=== PATIENT | female | born 2000 | race American Indian/Alaskan Native ===

== ENCOUNTER 2018-09-17 10:34 | Emergency (ER) | payer SELFPAY ==
[2018-09-17 10:47] VITALS: BP 127/72
[2018-09-17 12:56] LABS: Bilirubin,Urine NEG (Negative); Blood,Urine SM (Negative); Color,Urine Yellow (Yellow); Mucus,Urine FEW /HPF; Protein,Urine <15 mg/dL mg/dL (Negative)
[2018-09-17] MEDS ORDERED: ROCEPHIN IM STA (13:10)
[2018-09-17] MEDS ORDERED: XYLOCAINE 1% MPF 5 mL INFILTRATI ONE (13:10)
[2018-09-17] MEDS ORDERED: ZITHROMAX PO STA (13:10)
--- NOTE | 2018-09-17 13:51 | Emergency Department Report ---
ED Female HPI - General Chief complaint: Urogenital-Female Stated complaint: POSS STD Time Seen by Provider: 09/17/18 11:11 Source: patient Mode of arrival: Ambulatory Limitations: No Limitations - History of Present Illness Initial comments: 18-year-old Cypriot female presents to the emergency department complaining of a one-week history of what is discharge in his words come in contact with STD. States that her partner was advised that he had chlamydia and was treated accordingly yesterday. She reports having some cramping to the pelvic region off and on since vaginal irritation. No fever, chills, sweats, chest pain, palpitations. No diarrhea. No vaginal rashes. No herpetic lesions to her knowledge. MD Complaint: vaginal discharge -: Gradual Location: suprapubic Radiation: non-radiating Consistency: constant Improves with: none Worsens with: none Are you Now?: No Associated Symptoms: vaginal discharge. denies: nausea/vomiting, fever/chills, headaches, loss of appetite, dysuria, hematuria, rash, shortness of breath, syncope, weakness - Related Data Sexually active: No Previous Rx's Medication Instructions Recorded Last Taken Type metroNIDAZOLE [Flagyl] 500 mg PO Q12HR #20 tab 09/17/18 Unknown Rx Allergies Allergy/AdvReac Type Severity Reaction Status Date / Time No Known Allergies Allergy Verified 09/17/18 10:44 ED Review of Systems ROS: Stated complaint: POSS STD Other details as noted in HPI Comment: All other systems reviewed and negative ED Past Medical Hx - Past Medical History Previous Medical History?: No - Surgical History Past Surgical History?: No - Social History Smoking Status: Never Smoker Substance Use Type: None - Medications Home Medications: Home Medications Medication Instructions Recorded Confirmed Last Taken Type metroNIDAZOLE [Flagyl] 500 mg PO Q12HR #20 tab 09/17/18 Unknown Rx ED Physical Exam - General Limitations: No Limitations General appearance: alert, in no apparent distress - Head Head exam: Present: atraumatic, normocephalic - Eye Eye exam: Present: normal appearance, PERRL, EOMI Pupils: Present: normal accommodation - ENT ENT exam: Present: normal exam, mucous membranes moist - Neck Neck exam: Present: normal inspection - Respiratory Respiratory exam: Present: normal lung sounds bilaterally. Absent: respiratory distress, wheezes, rales, chest wall tenderness, accessory muscle use, decreased breath sounds - Cardiovascular Cardiovascular Exam: Present: regular rate, normal rhythm. Absent: systolic murmur, diastolic murmur, rubs, gallop - GI/Abdominal GI/Abdominal exam: Present: soft, normal bowel sounds - External exam: Present: normal external exam Speculum exam: Present: vaginal discharge Bi-manual exam: Present: other (was chaperoned by nurse Rashaad at the time of the examination). Absent: cervical motion tendernes, adnexal tenderness, augustine rine enlargement, uterine tenderness - Extremities Exam Extremities exam: Present: normal inspection - Back Exam Back exam: Present: normal inspection - Neurological Exam Neurological exam: Present: alert, oriented X3 - Psychiatric Psychiatric exam: Present: normal affect, normal mood - Skin Skin exam: Present: warm, dry, intact, normal color. Absent: rash ED Course Vital Signs 09/17/18 10:45 Temperature 98.4 F Pulse Rate 92 H Respiratory 16 Rate Blood Pressure 127/72 [Left] O2 Sat by Pulse 99 Oximetry Critical care attestation.: If time is entered above; I have spent that time in minutes in the direct care of this critically ill patient, excluding procedure time. ED Disposition Clinical Impression: Bacterial vaginal infection, Possible exposure to STD Disposition: DC-01 TO HOME OR SELFCARE Is pt being admited?: No Does the pt Need Aspirin: No Condition: Stable Instructions: Bacterial Vaginosis (ED), Sexually Transmitted Diseases (ED), Safe Sex (ED) Prescriptions: metroNIDAZOLE [Flagyl] 500 mg PO Q12HR #20 tab Referrals: CASI DELONGSHIPMAN MD FRANK [Primary Care Provider] - 3-5 Days Forms: STI Treatment and Prevention
== END 2018-09-17 14:17 | disposition home or self-care (01) ==
LOC: ED 10:34
DX: N76.0 Acute vaginitis (principal); Z20.2 Contact with and (suspected) exposure to infections with a predominantly sexual mode of transmission
CPT/HCPCS: 81001; 87210; 87591; 96372; 99284; J0696

== ENCOUNTER 2021-06-17 16:09 | Outpatient (CLI) | payer MEDICAID ==
[2021-06-17 18:09] LABS: Hematocrit 25.8 % (30.3-42.9); Mean Corpuscular HGB Conc 31 % (30-34); Platelet Count 326 K/mm3 (140-440); Red Blood Count 3.99 M/mm3 (3.65-5.03); Red Cell Distribution Width 19.3 % (13.2-15.2)
[2021-06-17 18:11] LABS: Mean Corpuscular Volume 65 fl (79-97)
[2021-06-17 19:11] VITALS: BP 118/71
== END 2021-06-17 19:10 | disposition home or self-care (01) ==
LOC: TRG 16:09 → APU 16:11 → TRG 19:10
PROVIDERS: ATTEND Obstetrics & Gynecology
DX: Z34.93 Encounter for supervision of normal pregnancy, unspecified, third trimester (principal); Z3A.39 39 weeks gestation of pregnancy
CPT/HCPCS: 36415; 59025; 85027; 86850; 86900; 86901

== ENCOUNTER 2021-06-26 11:06 | Inpatient (IN) | payer MEDICAID ==
[2021-06-26] MEDS ORDERED: NalbUPHINE 10 MG/1 ML INJ IV PRN (12:41)
[2021-06-26] MEDS ORDERED: ACETAMINOPHEN 325 MG TAB PO PRN (12:41)
[2021-06-26] MEDS ORDERED: METHYLERGONOVINE MALEATE 0.2 MG/ML VIAL IM PRN (12:41)
[2021-06-26] MEDS ORDERED: LOPERAMIDE 2 MG CAP PO PRN (12:41)
[2021-06-26] MEDS ORDERED: OXYTOCIN 10 UNIT/1 ML INJ IM PRN (12:41)
[2021-06-26] MEDS ORDERED: ONDANSETRON 4 MG/2 ML INJ IV PRN ×2 (12:41→23:56)
[2021-06-26] MEDS ORDERED: LIDOCAINE (2%) 20 MG/1 ML VIAL 20 ML MDV INFILTRATI ONE (12:41)
[2021-06-26] MEDS ORDERED: fentaNYL 100 MCG/2 ML INJ IV PRN (12:41)
[2021-06-26] MEDS ORDERED: ePHEDrine SULFATE 50 MG/1 ML INJ IV PRN (12:41)
[2021-06-26] MEDS ORDERED: miSOPROStol 200 MCG TAB PR PRN (12:41)
[2021-06-26] MEDS ORDERED: MINERAL OIL 30 ML ORAL LIQD PO PRN (12:41)
[2021-06-26] MEDS ORDERED: BUTORPHANOL 2 MG/1 ML INJ IV PRN ×2 (12:41)
[2021-06-26] MEDS ORDERED: TERBUTALINE 1 MG/1 ML INJ SUB-Q PRN (12:41)
[2021-06-26] MEDS ORDERED: CARBOPROST TROMETHAMINE 250 MCG/1 ML INJ IM PRN (12:41)
[2021-06-26] MEDS ORDERED: AMPICILLIN/NS 2 GM/100 ML 2 GM/100 ML BAG IV ONE (13:00)
[2021-06-26] MEDS ORDERED: OXYTOCIN DRIP 30 UNITS/500 ML BAG IV SCH ×3 (13:00→23:56)
[2021-06-26] MEDS ORDERED: LACTATED RINGERS 1,000 ML IV SCH (13:00)
[2021-06-26 13:26] LABS: Hematocrit 30.9 % (30.3-42.9); Hemoglobin 9.5 gm/dl (10.1-14.3); Mean Corpuscular HGB Conc 31 % (30-34); Platelet Count 275 K/mm3 (140-440); Red Blood Count 4.54 M/mm3 (3.65-5.03)
[2021-06-26 13:33] LABS: Mean Corpuscular Volume 68 fl (79-97); Red Cell Distribution Width 20.7 % (13.2-15.2)
--- NOTE | 2021-06-26 13:43 | History and Physical Report ---
History of Present Illness Date of examination: 06/26/21 Date of admission: 06/26/21 11:07 Chief complaint: I'm having contractions. History of present illness: 21yo G1 @ 40.3 weeks with an uncomplicated presents to triage with complaints of regular, painful contractions that started around 0800a today. Affirms movement and denies vaginal bleeding, LOF, chest pain, SOB, headaches, vision changes and NVD. Had an orange this AM, otherwise NPO since last night. Does not desire pharmacologic pain relief at this time. EDC Calculations Gestational Age: 40.3 weeks Past History: : 1 Term Births: 0 Premature Births: 0 Living Children: 0 Para: 0 Mult. Births: 0 Prev : 0 Prev. attempt? 0 Aborta: 0 Elect. Ab: 0 Spont. Ab: 0 Ectopics: 0 Past Medical History: Reviewed and updated today: Thyroid dx?? 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 of genital herpes: no Partner hx. of genital herpes: no Rash, Viral, or Febrile illness since last LMP? no Varicella/Chicken Pox Status: Immunized Genetic History: Congenital Heart Defect: Mom: no Dad: no Bala Disease: Mom: no Dad: no Thalassemia Mom: no Dad: no Neural Tube Defect Mom: no Dad: no Down's Syndrome Mom: no Dad: no Dimitrios-Sachs Mom: no Dad: no Sickle Cell Disease/Trait Mom: no Dad: no Hemophilia Mom: no Dad: no Muscular Dystrophy Mom: no Dad: no Cystic Fibrosis Mom: no Dad: no [place] Chorea Mom: no Dad: no Mental Retardation Mom: no Dad: no Fragile X Mom: no Dad: no Other Genetic/Chromosomal Disorder Mom: no Dad: no Child w/other defect Mom: no Dad: no Environmental Exposures: Xray Exposure: no Medication, drug, or alcohol use since LMP: no Chemical/Other Exposure: no Exposure to Cat Liter: no Hx of Parvovirus (Fifth Disease): no Occupational Exposure to Children: none Past History Past Medical History: thyroid disease (Possible?) Past Surgical History: no surgical history Family/Genetic History: cancer (Breast) Social history: no significant social history - Obstetrical History Expected Date of Delivery: 06/23/21 Actual Gestation: 40 Week(s) 3 Day(s) : 1 Para: 0 Hx # Term Pregnancies: 0 Number of Pregnancies: 0 Spontaneous Abortions: 0 Induced : 0 Number of Living Children: 0 Medications and Allergies Allergies Allergy/AdvReac Type Severity Reaction Status Date / Time No Known Allergies Allergy Verified 09/17/18 10:44 Home Medications Medication Instructions Recorded Confirmed Last Taken Type metroNIDAZOLE [Flagyl] 500 mg PO Q12HR #20 tab 09/17/18 06/17/21 Unknown Rx Ferrous Sulfate [Feosol 325 MG tab] 325 mg PO BID #60 tablet 06/17/21 Unknown Rx Active Meds: Active Medications Acetaminophen (Acetaminophen 325 Mg Tab) 650 mg PO Q4H PRN PRN Reason: Pain, Mild (1-3) Butorphanol Tartrate (Butorphanol 2 Mg/1 Ml Inj) 1 mg IV Q2H PRN PRN Reason: Pain, Moderate(4-6) LABOR PAIN Butorphanol Tartrate (Butorphanol 2 Mg/1 Ml Inj) 2 mg IV Q2H PRN PRN Reason: Pain , Severe (7-10) Carboprost Tromethamine (Carboprost Tromethamine 250 Mcg/1 Ml Inj) 250 mcg IM ONCE PRN PRN Reason: Uterine Bleeding Ephedrine Sulfate (Ephedrine Sulfate 50 Mg/1 Ml Inj) 10 mg IV Q2M PRN PRN Reason: Hypotension Fentanyl (Fentanyl 100 Mcg/2 Ml Inj) 100 mcg IV Q2H PRN PRN Reason: Pain,Severe (7-10) LABOR PAIN Oxytocin/Sodium Chloride (Pitocin/Ns 30 Unit/500ml) 30 units in 500 mls @ 2 mls/hr IV TITR MAURICIO; Protocol Lactated Ringer's (Lactated Ringers) 1,000 mls @ 125 mls/hr IV DIRECT MAURICIO Oxytocin/Sodium Chloride (Pitocin/Ns 30 Unit/500ml) 30 units in 500 mls @ 40 mls/hr IV TITR MAURICIO; Protocol Ampicillin Sodium (Ampicillin/Ns 1 Gm/50 Ml) 1 gm in 50 mls @ 100 mls/hr IV Q4H MAURICIO; Protocol Ampicillin Sodium (Ampicillin/Ns 2 Gm/100 Ml) 2 gm in 100 mls @ 100 mls/hr IV ONCE ONE; Protocol Stop: 06/26/21 13:59 Loperamide HCl (Loperamide 2 Mg Cap) 2 mg PO ONCE PRN PRN Reason: give with Hemabate Methylergonovine Maleate (Methylergonovine Maleate 0.2 Mg/Ml Vial) 0.2 mg IM ONCE PRN PRN Reason: Uterine Bleeding Mineral Oil (Mineral Oil 30 Ml Oral Liqd) 30 ml PO QHS PRN PRN Reason: Constipation Misoprostol (Misoprostol 200 Mcg Tab) 800 mcg WI ONCE PRN PRN Reason: Uterine Bleeding Nalbuphine HCl (Nalbuphine 10 Mg/1 Ml Inj) 10 mg IV Q2H PRN PRN Reason: Pain, Moderate (4-6) Ondansetron HCl (Ondansetron 4 Mg/2 Ml Inj) 4 mg IV Q8H PRN PRN Reason: Nausea And Vomiting Oxytocin (Oxytocin 10 Unit/1 Ml Inj) 10 unit IM ONCE PRN PRN Reason: Uterine Bleeding Terbutaline Sulfate (Terbutaline 1 Mg/1 Ml Inj) 0.25 mg SUB-Q ONCE PRN PRN Reason: Hyperstimulation/Hypertonicity Review of Systems All systems: negative Cardiovascular: no chest pain, no shortness of breath, no dyspnea on exertion, no high blood pressure, no leg edema Respiratory: no cough, no congestion Rectal Exam: deferred - Vital Signs Vital signs: Vital Signs Pulse BP 88 133/82 06/26/21 11:45 06/26/21 11:45 Temp Pulse Resp BP Pulse Ox 98.1 F 93 H 20 133/82 99 06/26/21 11:48 06/26/21 13:36 06/26/21 11:48 06/26/21 11:48 06/26/21 13:36 - Physical Exam Cardiovascular: Regular rate Lungs: Positive: Normal air movement Abdomen: Positive: normal appearance Genitourinary (Female): Positive: normal external genitalia Vulva: both: normal Vagina: Positive: normal moisture Uterus: Positive: normal size Extremities: Positive: normal - Obstetrical FHR: category 1 Uterine Contraction Monitor Mode: External Cervical Dilatation: 3 (3.5 (per content strategy lead)) Cervical Effacement Percentage: 80 (BBOW) station: -2 Uterine Contraction Pattern: Regular Uterine Tone Measurement Phase: Resting Uterine Contraction Intensity: Moderate Results Result Diagrams: 06/26/21 Unknown 06/26/21 Range/Units Unknown Hgb 9.5 L (10.1-14.3) gm/dl MCV 68 L (79-97) fl MCH 21 L (28-32) pg RDW 20.7 H (13.2-15.2) % GBS POSITIVE O POSITIVE Rubella: immune RPR: nonreactive Hep B Surface Antigen: negative Chlamydia by RAMONA: Negative Gonococcus by RAMONA: Negative Trich vag by RAMONA: Negative HIV Ab/p24 Ag Screen: Non Reactive HCV Antibody reflex to RAMONA: Negative AFP: Negative Assessment and Plan A: 21yo G1 @40.3 weeks presenting with regular, painful contractions x4 hours SVE: 3.5/8/0/-1 per content strategy lead Cat 1 FHT VSS Anemia affecting P: Admit to labor, admission orders placed cEFM Encourage position changes and ambulation Anticipate Uterotonics to be in room at time of delivery. Iron supplementation to be ordered after delivery - Patient Problems (1) Group beta Strep positive Current Visit: Yes Status: Acute (2) 40 weeks gestation of Current Visit: Yes Status: Acute (3) Anemia affecting first Current Visit: Yes Status: Acute
--- NOTE | 2021-06-26 15:49 | Progress Note ---
Assessment and Plan A: 21yo G1 @ 40.3 weeks admitted in active labor Cervical change, now 680/-1 Cat 1 FHT VSS GBS +, receiving 1st dose of ampicillin currently Mild anemia upon admission, H&H: 9.5/30.9 Does not desire pharmacologic pain management presently P: cEFM Consider AROM after second dose of GBS prophylaxis, due @ 1900. Discussed with pt and she is amenable to POC. Frequent position changes and ambulation as desired by pt Pharmacologic pain management PRN Anticipate - Patient Problems (1) 40 weeks gestation of Current Visit: Yes Status: Acute (2) Group beta Strep positive Current Visit: Yes Status: Acute Subjective - Subjective Date of service: 06/26/21 Principal diagnosis: IUP @ 40.3, active labor Patient reports: movement normal, contractions Objective - Vital Signs Vital Signs: Vital Signs - 12hr 06/26/21 06/26/21 06/26/21 11:45 11:46 11:48 Temperature 98.1 F Pulse Rate 88 92 H 94 H Respiratory 20 Rate Blood Pressure 133/82 Blood Pressure 133/82 [Right] O2 Sat by Pulse 99 97 Oximetry 06/26/21 06/26/21 06/26/21 11:51 11:56 12:01 Temperature Pulse Rate 93 H 88 85 Respiratory Rate Blood Pressure Blood Pressure [Right] O2 Sat by Pulse 98 97 98 Oximetry 06/26/21 06/26/21 06/26/21 12:06 12:11 12:16 Temperature Pulse Rate 93 H 92 H 87 Respiratory Rate Blood Pressure Blood Pressure [Right] O2 Sat by Pulse 99 98 98 Oximetry 06/26/21 06/26/21 06/26/21 12:21 12:26 12:31 Temperature Pulse Rate 83 85 92 H Respiratory Rate Blood Pressure Blood Pressure [Right] O2 Sat by Pulse 100 100 96 Oximetry 06/26/21 06/26/21 06/26/21 12:36 12:41 12:46 Temperature Pulse Rate 84 96 H 88 Respiratory Rate Blood Pressure Blood Pressure [Right] O2 Sat by Pulse 98 97 96 Oximetry 06/26/21 06/26/21 06/26/21 12:50 12:51 12:56 Temperature Pulse Rate 92 H 97 H 85 Respiratory Rate Blood Pressure Blood Pressure [Right] O2 Sat by Pulse 83 L 99 100 Oximetry 06/26/21 06/26/21 06/26/21 13:01 13:06 13:11 Temperature Pulse Rate 82 83 80 Respiratory Rate Blood Pressure Blood Pressure [Right] O2 Sat by Pulse 99 99 99 Oximetry 06/26/21 06/26/21 06/26/21 13:16 13:21 13:25 Temperature Pulse Rate 94 H 80 93 H Respiratory Rate Blood Pressure Blood Pressure [Right] O2 Sat by Pulse 98 97 94 Oximetry 06/26/21 06/26/21 06/26/21 13:26 13:31 13:36 Temperature Pulse Rate 83 84 93 H Respiratory Rate Blood Pressure Blood Pressure [Right] O2 Sat by Pulse 100 100 99 Oximetry 06/26/21 06/26/21 06/26/21 14:00 14:02 14:05 Temperature Pulse Rate 78 84 78 Respiratory Rate Blood Pressure 128/77 Blood Pressure [Right] O2 Sat by Pulse 87 100 Oximetry 06/26/21 06/26/21 06/26/21 14:10 14:15 14:20 Temperature Pulse Rate 77 81 84 Respiratory Rate Blood Pressure Blood Pressure [Right] O2 Sat by Pulse 100 100 99 Oximetry 06/26/21 06/26/21 06/26/21 14:25 14:30 14:35 Temperature Pulse Rate 109 H 86 83 Respiratory Rate Blood Pressure Blood Pressure [Right] O2 Sat by Pulse 83 L 100 100 Oximetry 06/26/21 06/26/21 06/26/21 14:40 14:45 14:50 Temperature Pulse Rate 75 87 84 Respiratory Rate Blood Pressure Blood Pressure [Right] O2 Sat by Pulse 100 100 100 Oximetry 06/26/21 06/26/21 06/26/21 14:55 15:00 15:05 Temperature Pulse Rate 82 82 91 H Respiratory Rate Blood Pressure Blood Pressure [Right] O2 Sat by Pulse 100 100 100 Oximetry 06/26/21 06/26/21 06/26/21 15:10 15:15 15:20 Temperature Pulse Rate 78 103 H 100 H Respiratory Rate Blood Pressure Blood Pressure [Right] O2 Sat by Pulse 100 100 100 Oximetry 06/26/21 15:39 Temperature Pulse Rate 95 H Respiratory Rate Blood Pressure Blood Pressure [Right] O2 Sat by Pulse 99 Oximetry - Exam Narrative Exam: Upon entering room, pt ambulating to bathroom, wireless monitors in place. Receiving 1st dose of ampicillin IV. Reporting contractions are more frequent and intense. Coached through contraction while pt sitting on toilet, tearful, reports relief by sitting on toilet. SVE: 6/80/-1. Pt's mother at bedside and supportive. Cardiovascular: Regular rate Lungs: Normal air movement Abdomen: Present: normal appearance Vulva: both: normal Uterus: Present: normal FHR: category 1 Uterine Contraction Monitor Mode: External (Wireless Gem monitor in place) Cervical Dilatation: 6 Cervical Effacement Percentage: 80 station: -1 Uterine Contraction Frequency (min): 2 Uterine Contraction Duration: 40-60 seconds Uterine Contraction Pattern: Regular Uterine Tone Measurement Phase: Resting Uterine Contraction Intensity: Moderate - Labs Labs: Abnormal Labs 06/26/21 Unknown Hgb 9.5 L MCV 68 L MCH 21 L RDW 20.7 H Laboratory Results - last 24 hr 06/26/21 06/26/21 Unknown Unknown WBC 10.8 RBC 4.54 Hgb 9.5 L Hct 30.9 MCV 68 L MCH 21 L MCHC 31 RDW 20.7 H Plt Count 275 Blood Type O POSITIVE Antibody Screen Negative
--- NOTE | 2021-06-26 16:32 | Ultrasound Report ---
ULTRASOUND OBSTETRIC LIMITED INDICATION / CLINICAL INFORMATION: presentation. Clinical Gestational Age (GA): 40.3 weeks.days COMPARISON: None available. FINDINGS: HEART RATE (beats per minute): 129 PRESENTATION: Cephalic. ADDITIONAL FINDINGS: None. IMPRESSION: 1. No significant abnormality. Signer Name: Fabio Pitt MD Signed: 06/26/2021 4:28 PM Workstation Name: [id number]
[2021-06-26] MEDS ORDERED: AMPICILLIN/NS 1 GM/50 ML 1 GM/50 ML BAG IV SCH (17:00)
--- NOTE | 2021-06-26 21:10 | Event Note ---
Date: 06/26/21 (2100) Upon entering room, pt lying left lateral in bed, breathing and moaning through contraction. Wireless monitor in place. Has been hydrating via PO and IVF. Pt received 2nd dose of antibiotics for GBS prophylaxis @ 1900 and 1 dose of fentanyl @ 193. AROM clear with bloody show @ 2099. Cat 1 FHT, regular contractions occurring q2 minutes. VSS. Anticipate .
--- NOTE | 2021-06-26 22:54 | Procedure Note ---
OB Delivery Note - Delivery Date of Delivery: 06/26/21 Mail Superintendent: TO [facility] (Colleen Medel [facility]) Estimated blood loss: 200cc - Vaginal Delivery position: OA Intrapartum events: none Delivery induction: none Delivery augmentation: rupture of membranes Delivery monitor: external FHT, external uterine Route of delivery: Delivery placenta: spontaneous Delivery cord: nuchal cord (loose, around right upper extremity), 3 umbilical vessels Episiotomy: none Delivery laceration: 1st degree (hemostatic, not repaired ) Anesthesia: none Delivery comments: Called by primary RN to bedside, as pt is endorsing rectal pressure with contractions. SVE: ant lip/100/+1. Pt bearing down spontaneously. Open glottis pushing with excellent maternal effort, ant lip reduced and pt progressed to c/c/+3. Cytotec available at bedside. of vigorous male infant, terminal mec noted. Infant placed immediately skin to skin with maternal abdomen, delayed co rd clamping x3 minutes, 3vc cord doubly clamped and cut by pt's mother. Cord blood collected. pitocin initiated. Bertrand delivery of intact placenta. 1st degree laceration hemostatic. QBL: 200mL. Counts performed with primary RN x2 and correct x2. Maternal and left in stable condition for recovery with primary RN and NILSON nurse. - Infant A at 1 minute: 8 at 5 minutes: 9 (Cabrera Lee "SURINDER")
--- NOTE | 2021-06-26 23:07 | Event Note ---
Date: 06/26/21 Called to bedside by primary RN @2240 for increased vaginal bleeding/ clots. Upon entering room, pt sitting upright in bed, holding skin to skin, alert and oriented. Multiple grape sized clots and half saturated peripad now in place for ~30 min noted at the perineum. Fundus firm, midline, @U/U. Bloody items weighed - QBL: 510g. 800mcg cyotec given buccally, 0.2mg methergine IM administered in right thigh. Second bag of pitocin IV initiated. MRBP noted, VS set to cycle q15 min. Pt denies chest pain, SOB, dizziness and lightheadness. QBL: 510g + 200mL blood loss from delivery = TOTAL QBL: 710mL
--- NOTE | 2021-06-26 23:34 | Event Note ---
Date: 06/26/21 Called to bedside by primary RN for additional grape-sized clots and trickle. This com writer immediately to bedside. Fundus remains firm, midline, @U/U. 100ml clear yellow urine straight cath'ed by primary RN. 1st degree laceration remains hemostatic, perineum reveals no other lacerations. Lower uterine sweep procedure explained to pt. Fentanyl administered prior, several clots removed via lower uterine sweep. Bloody items weighed: QBL: 188mL. Vaginal bleeding slowed. Pt remains asymptomatic, says she feels tired and would like to take a nap. Pt's mother holding swaddled infant at bedside. MD Vicente updated on pt's status. Plan for repeat H&H @0600 on 06/27/21. Total QBL: 898 mL
[2021-06-26] MEDS ORDERED: LANOLIN/ZINC/DIMETHICONE (LANSINOH) 7 GM TP PRN (23:56)
[2021-06-26] MEDS ORDERED: MAGNESIUM HYDROXIDE (MOM) ORAL LIQD UDC PO PRN (23:56)
[2021-06-26] MEDS ORDERED: BENZOCAINE/MENTHOL 20/0.5% TOP SPRAY 56 GM TP PRN (23:56)
[2021-06-26] MEDS ORDERED: WITCH HAZEL/ GLYCERIN PAD TP PRN (23:56)
[2021-06-26] MEDS ORDERED: diphenhydrAMINE 25 MG CAP PO PRN (23:56)
[2021-06-26] MEDS ORDERED: PROMETHAZINE 25 MG TAB PO PRN (23:56)
[2021-06-26] MEDS ORDERED: miSOPROStol 100 MCG TAB PR PRN (23:56)
[2021-06-26] MEDS ORDERED: PROMETHAZINE 25 MG RECT SUPP PR PRN (23:56)
[2021-06-26] MEDS ORDERED: oxyCODONE /ACETAMINOPHEN 5-325MG TAB PO PRN (23:56)
[2021-06-27] MEDS ORDERED: ACETAMINOPHEN 500 MG TAB PO PRN (00:47)
[2021-06-27] MEDS ORDERED: LACTATED RINGERS 1,000 ML ONE (01:07)
[2021-06-27] MEDS: IBUPROFEN 800 MG TAB PO SCH ×2 (02:58→10:50)
[2021-06-27 04:59] LABS: Hematocrit 27.8 % (30.3-42.9); Hemoglobin 8.4 gm/dl (10.1-14.3)
--- NOTE | 2021-06-27 09:16 | Progress Note ---
Assessment and Plan VSSAF, H&H post delivery with asymptomatic anemia d/t acute blood loss. Pt reports ambulating, voiding, and eating without difficulty. POC d/w pt. Questions encouraged and addressed. Continue pathway. Anticipate discharge home tomorrow. - Patient Problems (1) (normal spontaneous vaginal delivery) Current Visit: Yes Status: Acute Subjective - Subjective Date of service: 06/27/21 Principal diagnosis: Patient reports: appetite normal, voiding normally, pain well controlled, ambulating normally : doing well Objective - Vital Signs Latest vital signs: Vital Signs Temp Pulse Resp BP BP Pulse Ox Pulse Ox 06/27/21 07:57 98.0 F 93 H 22 114/76 97 06/27/21 05:32 98.3 F 82 20 121/73 99 06/27/21 02:50 100 06/27/21 01:54 98.6 F 76 18 129/53 100 06/27/21 01:13 86 100 06/27/21 01:08 75 100 06/27/21 01:03 75 99 06/27/21 01:02 84 89 06/27/21 00:58 78 94 06/27/21 00:55 84 84 06/27/21 00:53 89 96 06/27/21 00:48 79 98 06/27/21 00:43 78 96 06/27/21 00:38 73 98 06/27/21 00:35 75 82 L 06/27/21 00:33 94 H 93 06/27/21 00:29 87 83 L 06/27/21 00:28 87 92 06/27/21 00:25 75 128/89 06/27/21 00:23 69 100 06/27/21 00:21 70 86 06/27/21 00:18 72 99 06/27/21 00:13 71 99 06/27/21 00:08 70 99 06/27/21 00:03 71 97 06/26/21 23:58 72 97 06/26/21 23:53 68 139/75 93 06/26/21 23:48 83 96 06/26/21 23:43 70 97 06/26/21 23:38 84 99 06/26/21 23:33 76 99 06/26/21 23:28 100 H 97 06/26/21 23:23 81 100 06/26/21 23:18 75 99 05 23:13 72 99 05 23:08 77 99 05 23:03 74 99 05 22:58 81 97 05 22:53 74 99 05 22:49 73 149/64 05 22:44 100 H 145/85 05 21:19 75 99 05 21:14 86 99 05 21:09 77 100 05 21:04 83 99 05 20:31 85 94 05 20:28 77 98 05 20:23 71 84 06/26/21 20:18 76 97 05 20:13 81 99 05 20:08 81 100 05 20:03 78 100 06/26/21 19:58 83 100 05 19:53 106 H 99 06/26/21 19:48 78 100 06/26/21 19:43 80 99 06/26/21 19:38 84 98 06/26/21 19:33 68 86 06/26/21 19:28 92 H 99 06/26/21 19:23 81 99 06/26/21 19:18 111 H 100 06/26/21 19:13 85 100 06/26/21 19:08 83 97 06/26/21 19:07 107 H 94 06/26/21 19:03 87 100 05 18:58 77 100 06/26/21 18:53 95 H 100 06/26/21 18:48 79 99 06/26/21 18:43 75 100 05 18:38 85 100 05 18:37 86 90 05 18:33 79 99 05 18:28 81 100 05 18:23 91 H 94 06/26/21 18:18 108 H 88 06/26/21 18:12 55 L 06/26/21 18:02 77 L 06/26/21 17:53 37 L 83 L 06/26/21 17:50 74 100 05 17:45 86 100 05 17:40 75 100 05 17:35 80 100 05 17:30 86 100 06/26/21 17:25 93 H 97 06/26/21 17:20 82 100 06/26/21 17:15 93 H 100 06/26/21 17:13 53 L 84 06/26/21 17:10 93 H 100 06/26/21 17:05 99 H 100 06/26/21 17:00 71 100 06/26/21 16:55 72 100 06/26/21 16:50 77 100 06/26/21 16:45 75 100 06/26/21 16:40 81 100 06/26/21 16:35 85 96 06/26/21 16:34 74 73 L 06/26/21 16:28 47 L 06/26/21 16:23 66 0 L 06/26/21 16:18 58 L 92 06/26/21 16:14 69 100 06/26/21 16:09 74 100 06/26/21 16:04 81 97 06/26/21 15:59 86 100 06/26/21 15:54 105 H 100 06/26/21 15:49 92 H 100 06/26/21 15:44 88 100 06/26/21 15:39 95 H 99 06/26/21 15:20 100 H 100 06/26/21 15:15 103 H 100 06/26/21 15:10 78 100 06/26/21 15:05 91 H 100 06/26/21 15:00 82 100 06/26/21 14:55 82 100 06/26/21 14:50 84 100 06/26/21 14:45 87 100 06/26/21 14:40 75 100 06/26/21 14:35 83 100 06/26/21 14:30 86 100 06/26/21 14:25 109 H 83 L 06/26/21 14:20 84 99 06/26/21 14:15 81 100 06/26/21 14:10 77 100 06/26/21 14:05 78 100 06/26/21 14:02 84 128/77 06/26/21 14:00 78 87 06/26/21 13:36 93 H 99 06/26/21 13:31 84 100 06/26/21 13:26 83 100 06/26/21 13:25 93 H 94 06/26/21 13:21 80 97 06/26/21 13:16 94 H 98 06/26/21 13:11 80 99 06/26/21 13:06 83 99 06/26/21 13:01 82 99 06/26/21 12:56 85 100 06/26/21 12:51 97 H 99 06/26/21 12:50 92 H 83 L 06/26/21 12:46 88 96 06/26/21 12:41 96 H 97 06/26/21 12:36 84 98 06/26/21 12:31 92 H 96 06/26/21 12:26 85 100 06/26/21 12:21 83 100 06/26/21 12:16 87 98 06/26/21 12:11 92 H 98 06/26/21 12:06 93 H 99 06/26/21 12:01 85 98 06/26/21 11:56 88 97 06/26/21 11:51 93 H 98 06/26/21 11:48 98.1 F 94 H 20 133/82 97 06/26/21 11:46 92 H 99 06/26/21 11:45 88 133/82 Intake and Output 06/26/21 06/27/21 06/27/21 23:59 07:59 15:59 Intake Total 720 Output Total 300 Balance 420 Intake: Oral 360 Intake, Free Water 360 Output: Urine 300 Void 300 Other: Total, Intake Amount 360 Total, Output Amount 300 Estimated Blood Loss 810 - Exam Breasts: Present: normal Lungs: Present: Normal air movement Abdomen: Present: normal appearance, soft Uterus: Present: normal, firm Extremities: Present: normal - Labs Labs: Abnormal lab results 06/26/21 06/27/21 Range/Units Unknown 03:41 Hgb 9.5 L 8.4 L (10.1-14.3) gm/dl Hct 27.8 L (30.3-42.9) % MCV 68 L (79-97) fl MCH 21 L (28-32) pg RDW 20.7 H (13.2-15.2) %
[2021-06-27] MEDS: FERROUS SULFATE 325 MG TAB PO SCH (10:50)
[2021-06-27] MEDS: PRENATAL VIT27-FE FUMARATE-FOLIC ACID VIT TAB PO SCH (10:50)
[2021-06-28] MEDS: IBUPROFEN 800 MG TAB PO SCH ×3 (01:37→11:10)
[2021-06-28] MEDS: DOCUSATE SODIUM 100 MG CAP PO SCH ×2 (01:40→10:11)
[2021-06-28] MEDS ORDERED: TETANUS,DIPH,PERTUSS(ACELL) VACCINE 0.5 ML SYRINGE IM ONE (06:00)
--- NOTE | 2021-06-28 09:27 | Discharge Summary ---
Providers - Providers Date of Admission: 06/26/21 11:07 Date of discharge: 06/28/21 Attending physician: JOHANNE HOLLOWAY Primary care physician: JOHANNE HOLLOWAY Hospitalization Reason for admission: active labor Delivery: Laceration: 1st degree Other procedures: none complications: other (PPH) Discharge diagnosis: IUP at term delivered baby: male Pertinent studies: Pt denies shortness of breath, chest pain, feeling dizzy or lightheaded. She is aware that she will need to keep taking her iron as prescribed. Received a call from the RN informing me that patient has tested positive for COVID. Patient is asymptomatic. Recommended to patient that she retest outside of the hospital and call the office with results. Hospital course: S: Pt doing well. Voiding, ambulating, and passing flatus okay. BC: undecided. O: VSS. Fundus firm, minimal bleeding noted. H/H: 8.4/27.8. Asymptomatic anemia from delivery. A: 21 y.o. s/p , PPH. In good condition . P: Discharge home with instructions. Pt to schedule son's circumcision in the office in 1 wk. Pt to schedule visit in office in 4-6 wks. Condition at discharge: Good Disposition: 01 HOME / SELF CARE / HOMELESS Plan - Discharge Medications Prescriptions: Docusate Sodium [Colace] 100 mg PO BID PRN #60 capsule PRN Reason: Constipation Lidocain2.5%/Prilocai2.5% [Emla] 1 applic TP ONCE #1 tube Ibuprofen [Motrin] 800 mg PO Q8HR PRN #30 tablet PRN Reason: Pain, Moderate (4-6) - Provider Discharge Summary Activity: routine, no sex for 6 weeks, no heavy lifting 4 weeks, no strenuous exercise Diet: routine Instructions: routine Additional instructions: [] Smoking cessation referral if applicable(refer to patient education folder for contact #) [] Refer to [facility] Booklet Call your doctor immediately for: * Fever > 100.5 * Heavy vaginal bleeding ( >1 pad per hour) * Severe persistent headache * Shortness of breath * Reddened, hot, painful area to leg or breast * Drainage or odor from incision. * Keep incision clean and dry at all times and follow doctor's instructions rega rding bathing/showering - Follow up plan Follow up: JOHANNE HOLLOWAY MD [Primary Care Provider] - 7 Days (- Congratulations on the of your baby boy! - Please schedule your son's circumcision in the office in 1 week. - You have been prescribed EMLA cream for your son's circumcision. Do not use the cream at home, but bring it withyour to your son's circumcision appointment. - Please schedule your visit in the office in 4-6 weeks. - Should you have any questions or concerns after discharge, please do not hesitate to call the office at [phone].)
[2021-06-28] MEDS: PRENATAL VIT27-FE FUMARATE-FOLIC ACID VIT TAB PO SCH (10:11)
[2021-06-28] MEDS: FERROUS SULFATE 325 MG TAB PO SCH (10:11)
[2021-06-28 12:21] VITALS: BP 126/77
== END 2021-06-28 12:35 | disposition home or self-care (01) | DRG 774 ==
LOC: TRG 11:06 → APU 11:07 → TRG 13:27 → LD 13:45 → OB 06-27 01:45
PROVIDERS: ADMIT Obstetrics & Gynecology; ATTEND Obstetrics & Gynecology
PROC: 10E0XZZ Delivery of Products of Conception, External Approach (ICD-10-PCS; principal; 2021-06-26)
PROC: 10907ZC Drainage of Amniotic Fluid, Therapeutic from Products of Conception, Via Natural or Artificial Opening (ICD-10-PCS; 2021-06-26)
PROC: 3E0234Z Introduction of Serum, Toxoid and Vaccine into Muscle, Percutaneous Approach (ICD-10-PCS; 2021-06-28)
DX: O69.81X0 Labor and delivery complicated by cord around neck, without compression, not applicable or unspecified (principal); O72.1 Other immediate postpartum hemorrhage; Z3A.40 40 weeks gestation of pregnancy; Z37.0 Single live birth; Z23 Encounter for immunization; O99.824 Streptococcus B carrier state complicating childbirth; O99.02 Anemia complicating childbirth; O70.0 First degree perineal laceration during delivery; D62 Acute posthemorrhagic anemia; O98.52 Other viral diseases complicating childbirth; U07.1 COVID-19
CPT/HCPCS: 36415; 76815; 85014; 85018; 85027; 86592; 86762; 86850; 86900; 86901; 99211; G0378; G0463; J0290; J0690; J2210; J3010; J7120; U0003